=== PATIENT | female | born 1945 | race Caucasian/White ===

== ENCOUNTER 2017-04-24 09:09 | Emergency (ER) | payer MEDICARE, BC ==
[2017-04-24 10:46] LABS: Bilirubin Negative (Negative); Blood, Urine Negative (Negative); Glucose, Urine (Dipstick) Negative (Negative); Ketone, Urine Negative (Negative); Nitrite Negative (Negative); Protein, Urine (Dipstick) Negative (Neg-Trace); Urobilinogen 0.2 mg/dL (0.2-1.0)
[2017-04-24] MEDS ORDERED: Ketorolac Tromethamine 60 MG/2 ML VIAL ONE (11:17)
--- NOTE | 2017-04-24 13:16 | RAD ---
RADIOGRAPH PELVIS 1 VIEW: Date: 04/24/17 HISTORY: 71-year-old female with a few weeks of right hip pain. FINDINGS: No acute fracture. No dislocation. No high grade degenerative changes of the hips or SI joints. Pelv ic ring is grossly intact. Symmetrical, well corticated small defects at the lateral aspects of the bilateral iliac wings, nonspecific. No destructive osseous lesion. IMPRESSION: No major abnormality identified. POS: [facility]
--- NOTE | 2017-04-24 13:18 | RAD ---
RADIOGRAPH LUMBAR SPINE 3 VIEWS: HISTORY: 71-year-old female with recent onset of low back pain. FINDINGS: There are five lumbar-type vertebrae. Vertebral body heights are maintained. Grade I anterolisthesis of L4 on L5 due to degenerative facet disease at that level. There is also degenerative facet disea se at L5-S1 and L3-4. No severe disc space narrowing at any level. IMPRESSION: 1. 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 2. Grade I spondylolisthesis at L4-5 due to the facet osteoarthrosis. 3. No compression fracture. JN [] POS: [facility]
== END 2017-04-24 11:43 | disposition home or self-care (01) ==
LOC: ERS 09:09
DX: S39.012A Strain of muscle, fascia and tendon of lower back, initial encounter (principal); M25.551 Pain in right hip; E03.9 Hypothyroidism, unspecified; K21.9 Gastro-esophageal reflux disease without esophagitis; E78.5 Hyperlipidemia, unspecified; Z85.3 Personal history of malignant neoplasm of breast; Z92.21 Personal history of antineoplastic chemotherapy; Z92.3 Personal history of irradiation; Z79.52 Long term (current) use of systemic steroids; Z79.899 Other long term (current) drug therapy; X50.1XXA Overexertion from prolonged static or awkward postures, initial encounter
CPT/HCPCS: 72100; 72170; 81003; 96372; J1885

== ENCOUNTER 2018-04-15 13:00 | Outpatient (CLI) | payer MEDICARE, BC | END 2018-04-15 13:01 | disposition home or self-care (01) | LOC: BICRAD 13:00 | PROVIDERS: ATTEND Internal Medicine Rheumatology | DX: M17.0 Bilateral primary osteoarthritis of knee (principal) ==

== ENCOUNTER 2018-10-26 08:12 | Outpatient (CLI) | payer MEDICARE, BC ==
--- NOTE | 2018-10-26 10:51 | BD ---
DEXA BONE DENSITOMETRY: (Dual energy X-ray Absorptiometry) DATE: 10-26-18 HISTORY: 73-year-old white female for age-related, post-menopausal osteoporosis screening examination. Height 62.5, weight: 165 lbs. Age of menopause 44 years. COMPARISON: None available. FINDINGS: The bone mineral density (BMD) is given in grams per square centimeter (g/cm2): LUMBAR SPINE: BMD(g/cm2) T-score Z-score L1: 0.830 -1.5 0.5 L2: 0.906 -1.1 1.1 L3: 0.938 -1.3 1.0 L4: 0.915 -1.3 1.1 Total: 0.920 -1.3 0.9 HIP: Femoral neck: 0.888 0.4 2.3 Total: 1.014 0.6 2.2 FRAX WHO Fracture Risk Assessment Tool: 10 Year Fracture Risk * Major osteoporotic fracture: 12% Hip fracture: 1.5% Reported Risk Factors: [place](), Neck BMD=0.888, BMI=29.7, parental fracture, and rheumatoid arthritis. * Fracture probability is calculated for an untreated patient. Fracture probability may be lower if the patient has received treatment. IMPRESSION: 1) The mean bone mineral density of the lumbar spine is osteopenic. Fracture risk is increased. 2) The bone mineral density of the femoral neck is normal. Fracture risk is not increased. PAULINA Chang POS: [facility]
--- NOTE | 2018-10-26 11:14 | MMO ---
Bilateral MAMMO Bilat Diag [facility]. CLINICAL HISTORY: Patient is 73 years old and is seen for diagnostic exam. The patient has no family history of breast cancer. 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 The patient has a history of left Ultrasound Guided Core Biopsy in July, and left Lumpectomy in 2014 - malignant. VIEWS: The views performed were: bilateral craniocaudal with tomosynthesis; bilateral mediolateral oblique with tomosynthesis; bilateral mediolateral; and left exaggerated craniocaudal. FILMS COMPARED: The present examination has been compared to prior imaging studies performed at [facility] on 05/12/1999, 11/02/2002, 08/13/2004, 08/25/2005, 10/11/2006, 10/25/2007, 12/16/2009, 02/09/2011, 07/10/2014, 07/24/2014, 08/14/2015, 02/04/2016 and 06/10/2017. MAMMOGRAM FINDINGS: The breasts are heterogeneously dense, which could obscure a lesion on mammography. Finding 1: There is a stable area of architectural distortion with associated post-surgical scar seen in the left breast. Finding 2: There are vascular calcifications seen in the right breast. There are no suspicious masses, suspicious calcifications, or new areas of architectural distortion. IMPRESSION: THERE IS NO MAMMOGRAPHIC EVIDENCE OF MALIGNANCY. A ROUTINE FOLLOW-UP MAMMOGRAM IN 1 YEAR IS RECOMMENDED. THE RESULTS OF THIS EXAM WERE SENT TO THE PATIENT. ACR BI-RADS Category 2 - Benign finding MAMMOGRAPHY NOTE: 1. A negative mammogram report should not delay a biopsy if a dominant of clinically suspicious mass is present. 2. Approximately 10% to 15% of breast cancers are not detected by mammography. 3. Adenosis and dense breasts may obscure an underlying neoplasm.
== END 2018-10-26 08:13 | disposition home or self-care (01) ==
LOC: BICMAMMO 08:12
PROVIDERS: ATTEND Internal Medicine Hematology & Oncology
DX: C50.212 Malignant neoplasm of upper-inner quadrant of left female breast (principal); T38.6X5A Adverse effect of antigonadotrophins, antiestrogens, antiandrogens, not elsewhere classified, initial encounter; M85.88 Other specified disorders of bone density and structure, other site; Z98.890 Other specified postprocedural states
CPT/HCPCS: 77066; 77080; G0279

== ENCOUNTER 2020-01-05 09:15 | Outpatient (CLI) | payer MEDICARE, BC ==
--- NOTE | 2020-01-05 10:02 | MMO ---
Bilateral MAMMO Bilat Diag [facility]. CLINICAL HISTORY: Patient is 74 years old and is seen for diagnostic exam. The patient has no family history of breast cancer. 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 The patient has a history of left Ultrasound Guided Core Biopsy in July, and left Lumpectomy in 2014 - malignant. VIEWS: The views performed were: bilateral craniocaudal with tomosynthesis; bilateral mediolateral oblique with tomosynthesis; and bilateral mediolateral with tomosynthesis. FILMS COMPARED: The present examination has been compared to prior imaging studies performed at [facility] on 02/04/2016, 06/10/2017 and 10/26/2018. This study has been interpreted with the assistance of computer-aided detection. MAMMOGRAM FINDINGS: The breasts are heterogeneously dense, which could obscure a lesion on mammography. There is a stable post-surgical scar seen in the left breast. There are no suspicious masses, suspicious calcifications, or new areas of architectural distortion. IMPRESSION: THERE IS NO MAMMOGRAPHIC EVIDENCE OF MALIGNANCY. A ROUTINE FOLLOW-UP MAMMOGRAM IN 1 YEAR IS RECOMMENDED. THE RESULTS OF THIS EXAM WERE SENT TO THE PATIENT. ACR BI-RADS Category 2 - Benign finding MAMMOGRAPHY NOTE: 1. A negative mammogram report should not delay a biopsy if a dominant of clinically suspicious mass is present. 2. Approximately 10% to 15% of breast cancers are not detected by mammography. 3. Adenosis and dense breasts may obscure an underlying neoplasm. Reported by: INGE LAST MD Electonically Signed: [id number]
--- NOTE | 2020-01-05 13:47 | BD ---
Exam: DEXA Bone Density 01/05/20 HISTORY: Postmenopausal screening for osteoporosis. FINDINGS: Lumbar Spine: BMD (g/cm2) T-SCORE Z-SCORE L1 0.941 -0.4 1.6 L2 0.914 -1.0 1.3 L3 0.923 -1.5 0.9 L4 0.911 -1.4 1.1 L1-L4 0.922 -1.1 1.2 Femoral Neck: 0.853 0.0 2.0 Total Femur: 0.928 -0.1 1.6 There has been interval improvement of 2.2% of the BMD of the lumbar spine and reduction of 8.5% in t he BMD proximal femur since 10/26/18. The ten year fracture risk for a major osteoporotic fracture is 13% and for hip fracture is 2.75. Impression: Osteopenia. POS: [facility]
== END 2020-01-05 09:16 | disposition home or self-care (01) ==
LOC: BICMAMMO 09:15
PROVIDERS: ATTEND Internal Medicine Hematology & Oncology
DX: M81.0 Age-related osteoporosis without current pathological fracture (principal); C50.912 Malignant neoplasm of unspecified site of left female breast; M05.79 Rheumatoid arthritis with rheumatoid factor of multiple sites without organ or systems involvement; M85.88 Other specified disorders of bone density and structure, other site
CPT/HCPCS: 77066; 77080; G0279

== ENCOUNTER 2020-04-25 07:30 | Outpatient (CLI) | payer MEDICARE, BC ==
--- NOTE | 2020-04-25 10:19 | MRI ---
MRI OF RIGHT SHOULDER PERFORMED WITHOUT CONTRAST ENHANCEMENT: HISTORY: Rheumatoid arthritis. Complains of right shoulder with painful range of motion for 6 weeks. FINDINGS: There is some moderate arthrosis of the AC joint. Humeral head is high-riding directly abutting the undersurface of the acromion. This is associated with a recurrent rotator cuff tear. There is evide nce of previous rotator cuff repair. The tendon is retracted by approximately 3.3 cm. It involves t he entirety of the supraspinatus tendon and some of the anterior fibers of the infraspinatus tendon. I would estimate the AP dimension at approximately 3 cm. The subscapularis tendon appears intact. It is difficult to definitely identify a biceps tendon. I do not see an intraarticular portion of th e biceps tendon. The superior, posterior superior, and even posterior inferior labrum shows increased signal change ne ar the chondral labral junction. This suggests there is chronic tear and scar. There is blunting to the expected position of the biceps anchor insertion. There are marked arthritic changes of the gle nohumeral joint space. Osteophytic change of the humeral head. There is moderately severe atrophy of the superior half of the infraspinatus muscle and severe atroph y of the entire supraspinatus muscle. Subscapularis muscle is normal in appearance. IMPRESSION: 1. Recurrent large rotator cuff tear involving the entirety of the supraspinatus tendon and some of the anterior aspect of the infraspinatus. Marked atrophy of the supraspinatus muscle and superior as pect of the infraspinatus muscle. 2. Marked arthritic change of the glenohumeral joint space. Chronic-appearing labral injury and mod erate joint effusion. POS: [facility]
== END 2020-04-25 07:31 | disposition home or self-care (01) ==
LOC: BICMRI 07:30
PROVIDERS: ATTEND Internal Medicine Rheumatology
DX: M05.712 Rheumatoid arthritis with rheumatoid factor of left shoulder without organ or systems involvement (principal); M19.012 Primary osteoarthritis, left shoulder; M25.412 Effusion, left shoulder; M62.512 Muscle wasting and atrophy, not elsewhere classified, left shoulder; M75.102 Unspecified rotator cuff tear or rupture of left shoulder, not specified as traumatic

== ENCOUNTER 2020-07-10 17:40 | Emergency (ER) | payer MEDICARE, BC ==
[2020-07-10] MEDS ORDERED: diphenhydrAMINE 12.5 MG/5 ML UDCUP ONE (21:03)
[2020-07-10] MEDS ORDERED: Metoclopramide HCl 10 MG/2 ML VIAL ONE (21:03)
[2020-07-10] MEDS ORDERED: diphenhydrAMINE 50 MG/ML VIAL ONE (21:04)
[2020-07-10 22:08] LABS: ALT (SGPT) 18 U/L (8-55); AST (SGOT) 16 U/L (5-34); Alkaline Phosphatase 103 U/L (40-110); Anion Gap 13 mmol/L (10-20); BUN (Urea Nitrogen) 14 mg/dL (9.8-20.1); Bilirubin, Total 0.6 mg/dL (0.2-1.2); Calc. Creatinine Clearance 0 mL/min (70-130); Calcium 8.8 mg/dL (7.8-10.44); Carbon Dioxide 26 mmol/L (23-31); Chloride 103 mmol/L (98-107); Globulin 2.5 g/dL (2.4-3.5); Glucose 111 mg/dL (83-110); Lipase 18 U/L (8-78); Potassium 3.2 mmol/L (3.5-5.1); Protein, Total 6.5 g/dL (6.0-8.3); Sodium 139 mmol/L (136-145)
[2020-07-10 22:18] LABS: #Lymphocytes 0.6 thou/uL (1.20-3.40); #Monocytes 0.4 thou/uL (0.11-0.59); #Neutrophils 2.3 thou/uL (1.40-6.50); %Basophils 0.8 % (0.0-1.0); %Monocytes 10.9 % (0.0-10.0); %Neutrophils 69.3 % (42.0-75.0); Hemoglobin 14.6 g/dL (12.0-16.0); Mean Corpuscular HGB CONC 33.2 g/dL (32.0-36.0); Mean Corpuscular Hemoglobin 30.6 pg (27.0-31.0); Mean Platelet Volume 9.5 fL (7.4-10.4); Platelet Count 124 thou/uL (130-400); RBC Distribution Width 13.2 % (11.5-14.5); Red Blood Cell (RBC) Count 4.78 mill/uL (4.20-5.40); White Blood Cell (WBC) Count 3.3 thou/uL (4.8-10.8)
--- NOTE | 2020-07-13 15:23 | EKG ---
Test Reason : Blood Pressure : / mmHG Vent. Rate : 069 BPM Atrial Rate : 069 BPM P-R Int : 158 ms QRS Dur : 080 ms QT Int : 608 ms P-R-T Axes : 038 018 090 degrees QTc Int : 651 ms Normal sinus rhythm Septal infarct , age undetermined Abnormal ECG Confirmed by JI ATKINS, JEFF ([id number]), features editor DONNA MORALES ([id number]) on 07/13/2020 3:22:55 PM Referred By: Confirmed By:JEFF WORKMAN MD
== END 2020-07-10 23:43 | disposition home or self-care (01) ==
LOC: ERS 17:40
DX: U07.1 COVID-19 (principal); E03.9 Hypothyroidism, unspecified; K21.9 Gastro-esophageal reflux disease without esophagitis; E78.5 Hyperlipidemia, unspecified; E78.00 Pure hypercholesterolemia, unspecified; M06.9 Rheumatoid arthritis, unspecified; Z79.899 Other long term (current) drug therapy
CPT/HCPCS: 80053; 83690; 84484; 85025; 93005; 96365; 96366; 96375; J1200; J2765; Q0163

== ENCOUNTER 2021-04-28 13:51 | Outpatient (CLI) | payer MEDICARE, BC | END 2021-04-28 13:52 | disposition home or self-care (01) | LOC: BICRAD 13:51 | PROVIDERS: ATTEND Internal Medicine Rheumatology | DX: M54.2 Cervicalgia (principal); M47.812 Spondylosis without myelopathy or radiculopathy, cervical region; M43.12 Spondylolisthesis, cervical region; M43.13 Spondylolisthesis, cervicothoracic region | CPT/HCPCS: 72052 ==

== ENCOUNTER 2021-07-01 09:11 | Outpatient (CLI) | payer MEDICARE, BC | END 2021-07-01 09:12 | disposition home or self-care (01) | LOC: BICMRI 09:11 | PROVIDERS: ATTEND Surgery | DX: M54.2 Cervicalgia (principal); R51.9 Headache, unspecified; M50.30 Other cervical disc degeneration, unspecified cervical region; I67.82 Cerebral ischemia | CPT/HCPCS: 70551; 72125; 72141 ==

== ENCOUNTER 2021-08-21 12:45 | Outpatient (CLI) | payer MEDICARE, BC ==
[2021-08-21 14:55] LABS: INR-International Normal Ratio 0.9; PTT 23.9 sec (22.0-33.0); Prothrombin Time 10.4 sec (9.5-12.1)
[2021-08-21 15:09] LABS: Hemoglobin 12.6 g/dL (12.0-15.5); Mean Corpuscular HGB CONC 32.1 g/dL (32.0-36.0); Mean Corpuscular Hemoglobin 30.1 pg (27.0-33.0); Mean Corpuscular Volume 93.8 fl (81.6-98.3); Mean Platelet Volume 11.2 fl (7.4-10.4); Platelet Count 196 10x3/uL (150-450); RBC Distribution Width 12.9 % (11.5-14.5); Red Blood Cell (RBC) Count 4.18 10x6/uL (3.90-5.03); White Blood Cell (WBC) Count 5.7 10x3/uL (3.5-10.5)
[2021-08-21 15:18] LABS: Anion Gap 13 mmol/L (10-20); BUN (Urea Nitrogen) 12 mg/dL (9.8-20.1); Calc. Creatinine Clearance 0 mL/min (70-130); Calcium 8.7 mg/dL (7.8-10.44); Carbon Dioxide 23 mmol/L (23-31); Chloride 110 mmol/L (98-107); Glucose 96 mg/dL (83-110); Potassium 4.3 mmol/L (3.5-5.1); Sodium 142 mmol/L (136-145)
[2021-08-22 09:12] LABS: SARS-CoV-2 PCR by NAA Not Detected (NotDetected)
== END 2021-08-21 12:46 | disposition home or self-care (01) ==
LOC: LABBT 12:45
PROVIDERS: ATTEND Surgery
DX: Z01.818 Encounter for other preprocedural examination (principal); M47.12 Other spondylosis with myelopathy, cervical region; M50.00 Cervical disc disorder with myelopathy, unspecified cervical region; M48.02 Spinal stenosis, cervical region; Z20.822 Contact with and (suspected) exposure to COVID-19
CPT/HCPCS: 80048; 85027; 85610; 85730; 86850; 86900; 86901; 93005; U0003; U0005; 93010

== ENCOUNTER 2021-08-21 13:00 | Inpatient (IN) | payer MEDICARE, BC ==
[2021-08-19 11:42] VITALS: BMI 28.8
[2021-08-26] MEDS ORDERED: Thrombin 5000 UNITS/5 ML VIAL ONE (06:33)
[2021-08-26] MEDS ORDERED: Bacitracin Zinc Ointment 30 gm TUBE ONE (06:59)
[2021-08-26] MEDS ORDERED: CEFAZOLIN 1 GM VIAL ONE (07:25)
[2021-08-26] MEDS ORDERED: ceFAZolin 2 GM/Dextrose 50 ML IVPB ONE (07:25)
[2021-08-26] MEDS ORDERED: Fentanyl 250 MCG/5 ML VIAL ONE (07:28)
[2021-08-26] MEDS ORDERED: Dexmedetomidine 200 MCG/2 ML VIAL ONE (07:28)
[2021-08-26] MEDS ORDERED: PHENYLEPHRINE-NS 100 MCG/ML 10 ML SYRINGE ONE (07:36)
[2021-08-26] MEDS ORDERED: Dexamethasone 20 MG/5 ML VIAL ONE (07:36)
[2021-08-26] MEDS ORDERED: PROPOFOL 200 MG/20 ML VIAL ONE (07:36)
[2021-08-26] MEDS ORDERED: Ondansetron PF 4 MG/2 ML Vial ONE (07:36)
[2021-08-26] MEDS ORDERED: Vecuronium 10 MG VIAL ONE (07:36)
[2021-08-26] MEDS ORDERED: Lidocaine 1% PF 5 ML VIAL ONE (07:36)
[2021-08-26] MEDS ORDERED: ePHEDrine 50 MG/ML VIAL ONE (07:36)
[2021-08-26] MEDS ORDERED: Rocuronium Bromide 10 MG/ML (10ML VIAL) ONE (07:36)
[2021-08-26] MEDS ORDERED: Fentanyl 100 MCG/2 ML VIAL ONE ×5 (11:30→17:54)
[2021-08-26] MEDS ORDERED: SUGAMMADEX SODIUM 200 MG/2 ML VIAL ONE (12:34)
[2021-08-26] MEDS ORDERED: Promethazine HCl 25 MG/ML VIAL IVPB PRN (12:41)
[2021-08-26] MEDS ORDERED: Ondansetron HCl/PF 4 MG/2 ML Vial IVP PRN (12:41)
[2021-08-26] MEDS ORDERED: Promethazine HCl 25 MG/ML VIAL IM PRN (12:41)
[2021-08-26] MEDS ORDERED: Acetaminophen 325 MG TAB PO PRN (12:59)
[2021-08-26] MEDS ORDERED: Ondansetron PF 4 MG/2 ML Vial IVP PRN (13:02)
[2021-08-26] MEDS ORDERED: Acetaminophen 500 MG TAB PO PRN (13:04)
[2021-08-26] MEDS ORDERED: CeleCOXIB 100 MG CAP PO PRN (13:12)
[2021-08-26] MEDS ORDERED: Promethazine HCl 25 MG/ML VIAL ONE (14:15)
[2021-08-26] MEDS ORDERED: Ketorolac Tromethamine 30 MG/ML VIAL ONE (14:44)
[2021-08-26] MEDS: Ketorolac Tromethamine 30 MG/ML VIAL IVP PRN ×2 (14:45→20:30)
[2021-08-26] MEDS ORDERED: Diazepam 5 MG TAB ONE (15:37)
[2021-08-26] MEDS: Diazepam 5 MG TAB PO PRN (15:40)
[2021-08-26] MEDS: ceFAZolin 2 GM/Dextrose 50 ML 2 GM in Premix Bag 1 BAG IVPB SCH ×2 (20:17→23:38)
[2021-08-26] MEDS: Sodium Chloride 0.9% 1,000 ML IV SCH (20:29)
[2021-08-26] MEDS: Rosuvastatin 10 MG TAB PO SCH (20:29)
[2021-08-26] MEDS: Morphine 4 MG/ML VIAL SLOW IVP PRN (23:59)
[2021-08-27] MEDS: Sodium Chloride 0.9% 1,000 ML IV SCH ×3 (01:06→18:35)
[2021-08-27] MEDS: Levothyroxine Sodium 100 MCG TAB PO SCH (05:44)
[2021-08-27] MEDS: Ketorolac Tromethamine 30 MG/ML VIAL IVP PRN ×3 (05:44→20:15)
[2021-08-27 07:18] LABS: #Lymphocytes 1.5 thou/uL (1.20-3.40); #Monocytes 0.9 thou/uL (0.11-0.59); #Neutrophils 6.7 thou/uL (1.40-6.50); %Basophils 0.2 % (0.0-1.0); %Eosinophils 0.1 % (0.0-10.0); %Lymphocytes 16.1 % (21.0-51.0); %Monocytes 10.2 % (0.0-10.0); %Neutrophils 73.4 % (42.0-75.0); Hemoglobin 10.5 g/dL (12.0-16.0); Mean Corpuscular HGB CONC 33.7 g/dL (32.0-36.0); Mean Corpuscular Hemoglobin 31.9 pg (27.0-31.0); Mean Corpuscular Volume 94.6 fL (78.0-98.0); Mean Platelet Volume 8.4 fL (7.4-10.4); Platelet Count 165 thou/uL (130-400); RBC Distribution Width 11.8 % (11.5-14.5); Red Blood Cell (RBC) Count 3.28 mill/uL (4.20-5.40); White Blood Cell (WBC) Count 9.1 thou/uL (4.8-10.8)
[2021-08-27] MEDS ORDERED: hydrALAZINE 20 MG/ML VIAL SLOW IVP PRN (07:37)
[2021-08-27 07:38] LABS: Anion Gap 12 mmol/L (10-20); BUN (Urea Nitrogen) 16 mg/dL (9.8-20.1); Calc. Creatinine Clearance 87 mL/min (70-130); Calcium 8.5 mg/dL (7.8-10.44); Carbon Dioxide 24 mmol/L (23-31); Chloride 109 mmol/L (98-107); Glucose 104 mg/dL (83-110); Potassium 3.9 mmol/L (3.5-5.1); Sodium 141 mmol/L (136-145)
[2021-08-27] MEDS: Morphine 4 MG/ML VIAL SLOW IVP PRN ×3 (09:32→18:34)
[2021-08-27] MEDS: Diazepam 5 MG TAB PO PRN (09:32)
[2021-08-27] MEDS: ceFAZolin 2 GM/Dextrose 50 ML 2 GM in Premix Bag 1 BAG IVPB SCH ×2 (09:33→16:24)
[2021-08-27] MEDS: tiZANidine HCl 4 MG TAB PO PRN (16:24)
[2021-08-27] MEDS: Rosuvastatin 10 MG TAB PO SCH (20:14)
[2021-08-28] MEDS: tiZANidine HCl 4 MG TAB PO PRN ×2 (00:25→09:31)
[2021-08-28] MEDS: HYDROcodone/Acetaminophen 7.5/325 mg Tablet PO PRN ×3 (00:25→14:58)
[2021-08-28] MEDS: ceFAZolin 2 GM/Dextrose 50 ML 2 GM in Premix Bag 1 BAG IVPB SCH ×2 (00:27→09:35)
[2021-08-28] MEDS: Levothyroxine Sodium 100 MCG TAB PO SCH (05:25)
[2021-08-28] MEDS: Morphine 4 MG/ML VIAL SLOW IVP PRN (05:26)
[2021-08-28] MEDS: Sodium Chloride 0.9% 1,000 ML IV SCH (05:34)
[2021-08-28 16:18] VITALS: BP 168/65; TEMP 98.1
== END 2021-08-28 17:40 | DRG 455 ==
LOC: SURG A 08-26 05:44 → T4-B 08-26 20:05
PROVIDERS: ADMIT Surgery; ATTEND Surgery
PROC: 0RG2071 Fusion of 2 or more Cervical Vertebral Joints with Autologous Tissue Substitute, Posterior Approach, Posterior Column, Open Approach (ICD-10-PCS; principal; 2021-08-26)
PROC: 0RB30ZZ Excision of Cervical Vertebral Disc, Open Approach (ICD-10-PCS; 2021-08-26)
PROC: 01N10ZZ Release Cervical Nerve, Open Approach (ICD-10-PCS; 2021-08-26)
PROC: 00NW0ZZ Release Cervical Spinal Cord, Open Approach (ICD-10-PCS; 2021-08-26)
PROC: 0RG20A0 Fusion of 2 or more Cervical Vertebral Joints with Interbody Fusion Device, Anterior Approach, Anterior Column, Open Approach (ICD-10-PCS; 2021-08-26)
DX: M48.8X2 Other specified spondylopathies, cervical region (principal); G54.2 Cervical root disorders, not elsewhere classified; Z88.5 Allergy status to narcotic agent; Z88.2 Allergy status to sulfonamides; Z88.8 Allergy status to other drugs, medicaments and biological substances; M48.02 Spinal stenosis, cervical region
CPT/HCPCS: 36415; 76000; 80048; 85025; 93970; C1713; C1768; C1776; J0690; J1100; J1885; J2270; J2405; J2550; J2704; J3010; J3370; J3490; J7050

== ENCOUNTER 2021-10-09 08:12 | Outpatient (CLI) | payer MEDICARE, BC | END 2021-10-09 08:13 | disposition home or self-care (01) | LOC: BICRAD 08:12 | PROVIDERS: ATTEND Surgery | DX: M50.10 Cervical disc disorder with radiculopathy, unspecified cervical region (principal); Z98.890 Other specified postprocedural states | CPT/HCPCS: 72040 ==

== ENCOUNTER 2023-05-14 10:53 | Day surgery (SDC) | payer MEDICARE, BC ==
[2023-05-13 12:08] VITALS: BMI 29.6
[2023-05-14] MEDS ORDERED: Albuterol HFA (OR) 200 PUFF INH ONE (13:12)
[2023-05-14] MEDS ORDERED: fentaNYL 50 mcg/mL 1 mL Vial ONE (13:14)
[2023-05-14] MEDS ORDERED: Midazolam HCl 2 mg/2 ml Vial ONE (13:14)
[2023-05-14] MEDS ORDERED: Lidocaine 1% PF 5 ML VIAL ONE (14:00)
[2023-05-14] MEDS ORDERED: PROPOFOL 200 MG/20 ML VIAL ONE (14:00)
[2023-05-14] MEDS ORDERED: hydrALAZINE 20 MG/ML VIAL ONE ×2 (14:51→15:00)
== END 2023-05-14 15:48 | disposition home or self-care (01) ==
LOC: MRI 10:53
PROVIDERS: ATTEND Surgery
DX: M47.22 Other spondylosis with radiculopathy, cervical region (principal); R51.9 Headache, unspecified; M25.561 Pain in right knee; E03.9 Hypothyroidism, unspecified; Z90.710 Acquired absence of both cervix and uterus; Z88.5 Allergy status to narcotic agent; Z88.2 Allergy status to sulfonamides
CPT/HCPCS: 70450; 72125; 72141; 73721; J0360; J3010; J2250; J2704

== ENCOUNTER 2023-12-10 09:54 | Emergency (ER) | payer MEDICARE, BC ==
[2023-12-10] MEDS ORDERED: Lidocaine 1% PF 5 ML VIAL ONE (11:10)
[2023-12-10] MEDS ORDERED: Acetaminophen 500 MG TAB ONE (11:10)
[2023-12-10] MEDS ORDERED: Lidocaine 4% Patch TD SCH (11:45)
[2023-12-10] MEDS ORDERED: Boostrix 0.5 ML (Tdap) VIAL (>/=7 yrs of age) ONE (12:52)
== END 2023-12-10 12:50 | disposition home or self-care (01) ==
LOC: ERS 09:54
DX: N90.7 Vulvar cyst (principal); N73.2 Unspecified parametritis and pelvic cellulitis; M54.2 Cervicalgia; E78.00 Pure hypercholesterolemia, unspecified; Z79.899 Other long term (current) drug therapy; E03.9 Hypothyroidism, unspecified
CPT/HCPCS: 10060; 90471; 90715

== ENCOUNTER 2024-04-12 12:50 | Emergency (ER) | payer MEDICARE, BC ==
[2024-04-12] MEDS ORDERED: Acetaminophen 500 MG TAB ONE (13:58)
[2024-04-12] MEDS ORDERED: Ketorolac Tromethamine 30 MG (1 mL) VIAL ONE (13:58)
[2024-04-12] MEDS ORDERED: Clindamycin/D5W 600 mg/50 ml Premix Bag ONE (15:13)
[2024-04-12 15:18] LABS: #Basophils 0.04 10x3/uL (0.0-0.2); %Basophils 0.6 % (0.0-1.0); %Eosinophils 1.8 % (0.0-10.0); %Lymphocytes 21.3 % (21.0-51.0); Hematocrit 35.4 % (36.0-47.0); Hemoglobin 11.8 g/dL (12.0-16.0); Mean Corpuscular HGB CONC 33.3 g/dL (32.0-36.0); Mean Corpuscular Hemoglobin 31.1 pg (27.0-31.0); Mean Corpuscular Volume 93.4 fL (78.0-98.0); Mean Platelet Volume 10.2 fL (7.4-10.4); Platelet Count 197 10x3/uL (130-400); RBC Distribution Width 13.9 % (11.5-14.5); Red Blood Cell (RBC) Count 3.79 mill/uL (4.20-5.40)
[2024-04-12 15:33] LABS: ALT (SGPT) 10 U/L (8-55); AST (SGOT) 13 U/L (5-34); Albumin 3.7 g/dL (3.4-4.8); Alkaline Phosphatase 81 U/L (40-110); Anion Gap 15 mmol/L (10-20); BUN (Urea Nitrogen) 20 mg/dL (9.8-20.1); Bilirubin, Total 0.6 mg/dL (0.2-1.2); Calc. Creatinine Clearance 0 mL/min (70-130); Calcium 9.3 mg/dL (7.8-10.44); Carbon Dioxide 18 mmol/L (23-31); Chloride 113 mmol/L (98-107); Estimated GFR 39; Globulin 2.8 g/dL (2.4-3.5); Glucose 102 mg/dL (83-110); Protein, Total 6.5 g/dL (5.8-8.1); Sodium 142 mmol/L (136-145)
== END 2024-04-12 17:20 | disposition home or self-care (01) ==
LOC: ERS 12:50
DX: M79.605 Pain in left leg (principal); Q84.6 Other congenital malformations of nails; E03.9 Hypothyroidism, unspecified; E78.00 Pure hypercholesterolemia, unspecified; K21.9 Gastro-esophageal reflux disease without esophagitis; M06.9 Rheumatoid arthritis, unspecified; Z79.899 Other long term (current) drug therapy
CPT/HCPCS: 73140; 80053; 83605; 85025; 87040; 93971; 96365; 96372; 99284; J1885; J3490

== ENCOUNTER 2024-04-13 14:27 | Outpatient (CLI) | payer MEDICARE, BC | END 2024-04-13 14:28 | disposition home or self-care (01) | LOC: BICRAD 14:27 | PROVIDERS: ATTEND Internal Medicine Rheumatology | DX: M47.27 Other spondylosis with radiculopathy, lumbosacral region (principal); M81.0 Age-related osteoporosis without current pathological fracture; M05.79 Rheumatoid arthritis with rheumatoid factor of multiple sites without organ or systems involvement; M47.816 Spondylosis without myelopathy or radiculopathy, lumbar region | CPT/HCPCS: 72100 ==

== ENCOUNTER 2024-04-15 11:50 | Emergency (ER) | payer MEDICARE, BC | END 2024-04-15 12:12 | disposition home or self-care (01) | LOC: ERS 11:50 | DX: S61.204A Unspecified open wound of right ring finger without damage to nail, initial encounter (principal); E78.00 Pure hypercholesterolemia, unspecified; E03.9 Hypothyroidism, unspecified; Z79.899 Other long term (current) drug therapy; W45.0XXA Nail entering through skin, initial encounter | CPT/HCPCS: 99283 ==

== ENCOUNTER 2024-05-24 09:36 | Outpatient (CLI) | payer MEDICARE, BC | END 2024-05-24 09:37 | disposition home or self-care (01) | LOC: BICMAMMO 09:36 | PROVIDERS: ATTEND Internal Medicine Rheumatology | DX: M81.0 Age-related osteoporosis without current pathological fracture (principal); M47.27 Other spondylosis with radiculopathy, lumbosacral region | CPT/HCPCS: 77080 ==

== ENCOUNTER 2024-06-14 09:31 | Outpatient (CLI) | payer MEDICARE, BC ==
[2024-06-14 11:54] LABS: Bilirubin Negative (Negative); Blood, Urine Trace (Negative); Clarity Clear (Clear); Glucose, Urine (Dipstick) Normal (Negative); Ketone, Urine Negative (Negative); Leukocyte Negative Leu/uL (Negative); Nitrite Negative (Negative); Protein, Urine (Dipstick) 20 mg/dL (Neg-Trace); Specific Gravity, Urine 1.003 (1.002-1.036); Urobilinogen Normal mg/dL (Less than 2); pH, Urine 5.5 (5.0-9.0)
[2024-06-14 12:03] LABS: Prothrombin Time 13.6 sec (12.0-14.7)
[2024-06-14 12:04] LABS: Anion Gap 12 mmol/L (10-20); BUN (Urea Nitrogen) 17 mg/dL (9.8-20.1); Calc. Creatinine Clearance 0 mL/min (70-130); Calcium 8.9 mg/dL (7.8-10.44); Carbon Dioxide 23 mmol/L (23-31); Chloride 110 mmol/L (98-107); Estimated GFR 58; Glucose 62 mg/dL (83-110); Potassium 3.9 mmol/L (3.5-5.1); Sodium 141 mmol/L (136-145)
[2024-06-14 13:22] LABS: #Basophils 0.05 10x3/uL (0.0-0.2); %Basophils 0.7 % (0.0-1.0); %Eosinophils 2.9 % (0.0-10.0); %Lymphocytes 22.1 % (21.0-51.0); %Monocytes 8.6 % (0.0-10.0); %Neutrophils 65.6 % (42.0-75.0); Hematocrit 37.3 % (36.0-47.0); Hemoglobin 11.8 g/dL (12.0-16.0); Mean Corpuscular HGB CONC 31.6 g/dL (32.0-36.0); Mean Corpuscular Hemoglobin 30.2 pg (27.0-31.0); Mean Corpuscular Volume 95.4 fL (78.0-98.0); Mean Platelet Volume 10.9 fL (7.4-10.4); Platelet Count 234 10x3/uL (130-400); RBC Distribution Width 13.3 % (11.5-14.5); Red Blood Cell (RBC) Count 3.91 mill/uL (4.20-5.40)
== END 2024-06-14 09:32 | disposition home or self-care (01) ==
LOC: LABBT 09:31
PROVIDERS: ATTEND Orthopaedic Surgery
DX: Z01.818 Encounter for other preprocedural examination (principal); M17.0 Bilateral primary osteoarthritis of knee
CPT/HCPCS: 71046; 80048; 81003; 85025; 85610; 87081; 93005; 93010

== ENCOUNTER 2024-06-14 10:57 | Outpatient (CLI) | payer MEDICARE, BC | END 2024-06-14 10:58 | disposition home or self-care (01) | LOC: BICCT 10:57 | PROVIDERS: ATTEND Orthopaedic Surgery | DX: M17.12 Unilateral primary osteoarthritis, left knee (principal); M16.12 Unilateral primary osteoarthritis, left hip; M25.462 Effusion, left knee | CPT/HCPCS: 71046; 80048; 81003; 85025; 85610; 87081; 93005 ==

== ENCOUNTER 2024-06-19 06:11 | Observation (INO) | payer MEDICARE, BC ==
[2024-06-14 09:50] VITALS: BMI 31.1
[2024-06-19] MEDS ORDERED: methylPREDNISolone Acetate 40 mg/ml Vial ONE (06:25)
[2024-06-19] MEDS ORDERED: Bupivacaine PF 0.5% 30 ML VIAL ONE (06:26)
[2024-06-19] MEDS ORDERED: Lidocaine 1% PF 5 ML VIAL ONE ×2 (06:26→06:29)
[2024-06-19] MEDS ORDERED: PROPOFOL 20 ML ONE (06:29)
[2024-06-19] MEDS ORDERED: Ondansetron PF 4 MG/2 ML Vial ONE (06:30)
[2024-06-19] MEDS ORDERED: Dexamethasone 20 MG/5 ML VIAL ONE (06:30)
[2024-06-19] MEDS ORDERED: fentaNYL 50 mcg/mL 1 mL Vial ONE ×4 (06:30→08:36)
[2024-06-19] MEDS ORDERED: Scopolamine 1 mg/72 hour Patch ONE (07:08)
[2024-06-19] MEDS ORDERED: Ropivacaine 0.5% HCl/PF (150 MG/30 ML VIAL) ONE (07:28)
[2024-06-19] MEDS ORDERED: Lidocaine 1% (PF) 30 ML VIAL ONE (07:28)
[2024-06-19] MEDS ORDERED: HYDROcodone/Acetaminophen 10/325 mg Tablet PO PRN ×2 (07:30)
[2024-06-19] MEDS ORDERED: Ropivacaine 0.2% 550 ML 550 ML NERVE BLCK SCH (07:30)
[2024-06-19] MEDS ORDERED: Promethazine HCl 25 MG/ML VIAL IM PRN ×3 (07:30→09:11)
[2024-06-19] MEDS ORDERED: Ondansetron PF 4 MG/2 ML Vial IVP PRN ×2 (07:30→09:11)
[2024-06-19] MEDS ORDERED: fentaNYL 50 mcg/mL 1 mL Vial SLOW IVP PRN (07:30)
[2024-06-19] MEDS ORDERED: PHENYLEPHRINE-NS 100 MCG/ML 10 ML SYRINGE ONE (08:32)
[2024-06-19] MEDS ORDERED: Ondansetron HCl/PF 4 MG/2 ML Vial IVP PRN (09:09)
[2024-06-19] MEDS ORDERED: diphenhydrAMINE 25 MG CAP PO PRN (09:11)
[2024-06-19] MEDS ORDERED: Pregabalin 50 MG CAP PO PRN (09:12)
[2024-06-19] MEDS ORDERED: Vancomycin 1.5 GM in Sodium Chloride 0.9% 250 ML 300 ML IVPB SCH (09:15)
[2024-06-19] MEDS ORDERED: Tranexamic Acid 1,000 MG in Sodium Chloride 0.9% 100 ML IVPB SCH (09:15)
[2024-06-19] MEDS ORDERED: Tranexamic Acid 1,000 MG/10 ML VIAL ONE (09:26)
[2024-06-19] MEDS ORDERED: Denosumab 60 MG/ML Vial SC SCH (09:59)
[2024-06-19] MEDS: Sodium Chloride 0.9% 1,000 ML IV SCH (10:28)
[2024-06-19] MEDS: Ketorolac Tromethamine 30 MG (1 mL) VIAL IVP SCH (12:37)
[2024-06-19] MEDS: Vancomycin (BATCH) 1.5 GM in Premix 1 BAG IVPB SCH (16:07)
[2024-06-19] MEDS: CEFAZOLIN 2 GM in Sodium Chloride 0.9% 100 ML IVPB SCH (16:08)
[2024-06-19] MEDS: Aspirin 81 mg Enteric Coated Tablet PO SCH (21:40)
[2024-06-19] MEDS: Rosuvastatin 20 MG TAB PO SCH (21:40)
[2024-06-19] MEDS: Amitriptyline HCl 25 MG TAB PO SCH (21:40)
[2024-06-19] MEDS: Zolpidem Tartrate 5 MG TAB PO PRN (21:41)
[2024-06-20 06:00] LABS: Hematocrit 31.2 % (36.0-47.0); Hemoglobin 10.3 g/dL (12.0-16.0); Mean Corpuscular Hemoglobin 30.7 pg (27.0-31.0); Mean Corpuscular Volume 92.9 fL (78.0-98.0); Mean Platelet Volume 11.3 fL (7.4-10.4); Platelet Count 180 10x3/uL (130-400); RBC Distribution Width 13.1 % (11.5-14.5); Red Blood Cell (RBC) Count 3.36 mill/uL (4.20-5.40)
[2024-06-20] MEDS: Levothyroxine Sodium 75 MCG TAB PO SCH (06:09)
[2024-06-20] MEDS: Topiramate 25 MG TAB PO SCH (08:26)
[2024-06-20] MEDS: Ferrous Gluconate 324 MG TAB PO SCH (08:26)
[2024-06-20] MEDS: Pantoprazole DR 40 MG TAB PO SCH (08:27)
[2024-06-20] MEDS: Docusate 100 MG CAP PO SCH (08:27)
[2024-06-20] MEDS: Folic Acid 1 MG TAB PO SCH (08:27)
[2024-06-20] MEDS: Cholecalciferol 1,000 UNITS (25 MCG) TAB PO SCH (08:27)
[2024-06-20] MEDS: Amlodipine 10 MG TAB PO SCH (08:27)
[2024-06-20] MEDS: Multivitamin W/ Minerals 1 TAB PO SCH (08:27)
[2024-06-20] MEDS: Senokot S 8.6-50 MG TAB PO SCH (08:27)
[2024-06-20] MEDS: Acetaminophen 325 MG TAB PO PRN (08:28)
[2024-06-20 16:39] VITALS: BP 159/71; TEMP 97.7
[2024-06-21] MEDS ORDERED: Ondansetron ODT 4 MG TAB ONE (15:49)
[2024-07-03 06:09] LABS: Hematocrit 33.6 % (36.0-47.0); Hemoglobin 10.9 g/dL (12.0-16.0); Mean Corpuscular HGB CONC 32.4 g/dL (32.0-36.0); Mean Corpuscular Hemoglobin 29.5 pg (27.0-31.0); Mean Corpuscular Volume 91.1 fL (78.0-98.0); Mean Platelet Volume 10.8 fL (7.4-10.4); Platelet Count 178 10x3/uL (130-400); RBC Distribution Width 13.1 % (11.5-14.5); Red Blood Cell (RBC) Count 3.69 mill/uL (4.20-5.40)
== END 2024-06-21 17:06 | disposition home or self-care (01) ==
LOC: SDC 06:11 → SURG B 10:19 → SDC 13:22 → INTOOBSV 06-21 10:20 → OBSVTOIN 06-21 10:20
PROVIDERS: ADMIT Orthopaedic Surgery; ATTEND Orthopaedic Surgery
PROC: 0SRD0J9 Replacement of Left Knee Joint with Synthetic Substitute, Cemented, Open Approach (ICD-10-PCS; principal; 2024-06-19)
PROC: 3E0U33Z Introduction of Anti-inflammatory into Joints, Percutaneous Approach (ICD-10-PCS; 2024-06-19)
DX: M17.0 Bilateral primary osteoarthritis of knee (principal); E89.0 Postprocedural hypothyroidism; Z88.2 Allergy status to sulfonamides; Z88.5 Allergy status to narcotic agent; Z88.8 Allergy status to other drugs, medicaments and biological substances; Z90.710 Acquired absence of both cervix and uterus
CPT/HCPCS: 85027; 97110 ×3; 97116 ×3; 97530; A4306; C1713; C1776; C1889; J0665; J1010; J1100; J1885 ×2; J2405; J2704; J2795 ×2; J3010; J3370; 36415